=== PATIENT | male | born 1965 | race African-American/Black ===

== ENCOUNTER 2020-05-02 09:23 | Emergency (ER) | payer MEDICARE, MEDICAID ==
[~2020-05-02] VITALS: Ht 175.3 cm; Wt 82.0 kg
[~2020-05-02 09:23] MED LIST: LEVO500T2 PO; NIFEDIPINE; REN400 PO
[2020-05-02 10:17] LABS: BASOPHILS % 1.1 % (0.0-2.0); EOSINOPHILS % 9.5 % (0.0-5.0); HEMATOCRIT. 33.1 % (42.0-52.0); HEMOGLOBIN. 10.6 g/dL (14.0-18.0); LYMPHOCYTES % 13.5 % (20.0-50.0); MEAN CORPUSCULAR VOLUME 93.9 fL (80.0-94.0); MEAN PLATELET VOLUME 7.7 fl (7.4-10.4); MONOCYTES % 10.5 % (2.0-8.0); NEUTROPHILS % 65.4 % (40.0-76.0); PLATELET 286 x1000/uL (130-400); RED BLOOD CELL COUNT 3.52 mill/uL (4.7-6.1); RED CELL DISTRIBUTION WIDTH 14.8 % (11.6-14.6)
[2020-05-02 10:18] LABS: CHLORIDE 100 mEq/L (98-107)
[2020-05-02 11:30] VITALS: BP 135/62
== END 2020-05-02 12:44 | disposition home or self-care (01) ==
LOC: ER 09:23
DX: T82.838A Hemorrhage due to vascular prosthetic devices, implants and grafts, initial encounter (principal); E11.22 Type 2 diabetes mellitus with diabetic chronic kidney disease; N18.6 End stage renal disease; Z99.2 Dependence on renal dialysis; Y84.1 Kidney dialysis as the cause of abnormal reaction of the patient, or of later complication, without mention of misadventure at the time of the procedure; Y92.018 Other place in single-family (private) house as the place of occurrence of the external cause
CPT/HCPCS: 36415; 80053; 85025; 86850; 86900; 93005; 99284

== ENCOUNTER 2021-10-19 09:43 | Day surgery (SDC) | payer MEDICARE, MEDICAID ==
[~2021-10-19] VITALS: Ht 182.9 cm; Wt 112.5 kg
[~2021-10-19 09:43] MED LIST changes: +ASPI-1497 PO; +ATOR40TA70 PO; +CINA30 PO; -LEVO500T2 PO; -NIFEDIPINE
[2021-10-19 10:20] LABS: BASOPHILS % 0.7 % (0.0-2.0); EOSINOPHILS % 10.4 % (0.0-5.0); HEMATOCRIT. 36.8 % (42.0-52.0); HEMOGLOBIN. 11.8 g/dL (14.0-18.0); LYMPHOCYTES % 12.3 % (20.0-50.0); MEAN CORPUSCULAR HEMOGLOBIN 30.1 pg (28.0-32.0); MEAN PLATELET VOLUME 7.5 fl (7.4-10.4); MONOCYTES % 14.1 % (2.0-8.0); NEUTROPHILS % 62.5 % (40.0-76.0); PLATELET 270 x1000/uL (130-400); RED BLOOD CELL COUNT 3.91 mill/uL (4.7-6.1); RED CELL DISTRIBUTION WIDTH 14.6 % (11.6-14.6)
[2021-10-19 10:31] LABS: PARTIAL THROMBOPLASTIN TIME 27.7 sec (23.4-31.0); PROTHROMBIN TIME 11.1 sec (9.6-11.0)
[2021-10-19] MEDS ORDERED: SODIUM CHLORIDE 0.9% 500 ML IV ONE (11:30)
[2021-10-19] MEDS ORDERED: PROPOFOL 200MG/20ML VIAL IV ONE (11:31)
[2021-10-19] MEDS ORDERED: MIDAZOLAM HCL 2 MG/2 ML VIAL ONE (11:32)
[2021-10-19] MEDS ORDERED: BACITRACIN 15GM TUBE TOP ONE (11:33)
[2021-10-19] MEDS ORDERED: POLYMYXIN B SULFATE 500000 UNITS/VIAL ONE (11:33)
[2021-10-19] MEDS ORDERED: THROMBIN (BOVINE) 5000 UNITS/VIAL TOP ONE (11:33)
[2021-10-19] MEDS ORDERED: BUPIVACAINE HCL 0.5% (5MG/ML) 50ML ONE (11:33)
[2021-10-19] MEDS ORDERED: HEPARIN SODIUM 1,000 UNIT/1ML VIAL IV ONE (11:33)
[2021-10-19] MEDS ORDERED: FENTANYL CITRATE/PF 50MCG/ML 2ML VIAL ONE (11:34)
[2021-10-19] MEDS ORDERED: CEFAZOLIN SODIUM 1000MG/VIAL ONE (11:44)
[2021-10-19] MEDS ORDERED: DEXAMETHASONE 4MG/ML 1ML VIAL ONE (11:44)
[2021-10-19] MEDS ORDERED: ONDANSETRON HCL 4MG/2ML INJ ONE (11:44)
[2021-10-19] MEDS ORDERED: EPHEDRINE SULFATE 50MG/ML VIAL ONE (12:02)
[2021-10-19] MEDS ORDERED: SUCCINYLCHOLINE CHLORIDE 200MG/10ML IV ONE (12:24)
[2021-10-19] MEDS ORDERED: HEPARIN 1000 UNITS/ML 10ML ONE (12:47)
[2021-10-19] MEDS ORDERED: FENTANYL CITRATE/PF 50MCG/ML 2ML VIAL IV PRN (13:00)
[2021-10-19] MEDS ORDERED: GLYCOPYRROLATE 0.2 MG/ML 2ML VIAL IV PRN (13:00)
[2021-10-19] MEDS ORDERED: ONDANSETRON HCL 4MG/2ML INJ IV PRN (13:00)
[2021-10-19] MEDS ORDERED: PROTAMINE SULFATE 10MG/ML VIAL 5ML IV ONE (13:03)
[2021-10-19] MEDS ORDERED: KETOROLAC 30MG/ML VIAL ONE (13:08)
== END 2021-10-19 15:20 | disposition home or self-care (01) ==
LOC: OR 09:43
PROVIDERS: ATTEND Surgery Vascular Surgery
DX: I77.0 Arteriovenous fistula, acquired (principal); N18.6 End stage renal disease; T82.898A Other specified complication of vascular prosthetic devices, implants and grafts, initial encounter; E78.00 Pure hypercholesterolemia, unspecified; Z79.899 Other long term (current) drug therapy; Z20.822 Contact with and (suspected) exposure to COVID-19; Z98.890 Other specified postprocedural states; X58.XXXA Exposure to other specified factors, initial encounter; Y93.89 Activity, other specified; Y92.89 Other specified places as the place of occurrence of the external cause; Y99.8 Other external cause status
CPT/HCPCS: 36415; 36832; 80048; 85025; 85610; 85730; 87426; 93005; C1768; C9803; J0330; J0690; J1100; J1644; J1885; J2250; J2405; J2704; J2720; J3010; J3490; J7040

== ENCOUNTER 2021-10-19 22:50 | Emergency (ER) | payer MEDICARE, MEDICAID ==
[~2021-10-19] VITALS: Ht 182.9 cm; Wt 112.0 kg
[2021-10-19 23:07] VITALS: BP 150/76
== END 2021-10-20 03:40 | disposition left against medical advice (07) ==
LOC: ER 22:50
DX: Z53.21 Procedure and treatment not carried out due to patient leaving prior to being seen by health care provider (principal)

== ENCOUNTER 2021-11-07 06:29 | Inpatient (IN) | payer MEDICARE, MEDICAID ==
[~2021-11-07] VITALS: Ht 182.9 cm; Wt 114.8 kg
[2021-11-07 09:46] LABS: BASOPHILS % 0.6 % (0.0-2.0); EOSINOPHILS % 8.1 % (0.0-5.0); HEMATOCRIT. 34.2 % (42.0-52.0); HEMOGLOBIN. 10.7 g/dL (14.0-18.0); LYMPHOCYTES % 12.2 % (20.0-50.0); MEAN CORPUSCULAR HEMOGLOBIN 29.5 pg (28.0-32.0); MEAN CORPUSCULAR VOLUME 93.9 fL (80.0-94.0); MEAN PLATELET VOLUME 8.3 fl (7.4-10.4); MONOCYTES % 13.1 % (2.0-8.0); PLATELET 387 x1000/uL (130-400); RED BLOOD CELL COUNT 3.64 mill/uL (4.7-6.1); RED CELL DISTRIBUTION WIDTH 14.8 % (11.6-14.6)
[2021-11-07 09:54] LABS: CHLORIDE 101 mEq/L (98-107)
[2021-11-07 09:55] LABS: PROTHROMBIN TIME 11.1 sec (9.6-11.0)
[2021-11-07] MEDS ORDERED: INSULIN REGULAR (HUMULIN R) 300UNITS/3ML VIAL IV ONE (11:00)
[2021-11-07] MEDS ORDERED: CALCIUM GLUCONATE 1,000 MG in DEXT 5% WATER 100 ML IV ONE (11:00)
[2021-11-07] MEDS ORDERED: SODIUM BICARBONATE 8.4% 1 MEQ/ML 50ML SYR IV ONE (11:00)
[2021-11-07] MEDS ORDERED: DEXTROSE 50% WATER 50ML SYRINGE IV ONE (11:00)
[2021-11-07] MEDS ORDERED: CALCIUM GLUCONATE 1GM PREMIX 100 ML IV NR (11:15)
[2021-11-07] MEDS ORDERED: LIDOCAINE HCL 1% 10 MG/ML 10ML VIAL ONE (13:27)
[2021-11-07 16:30] VITALS: BP 152/68
[2021-11-07] MEDS ORDERED: ENOXAPARIN 40MG/0.4ML SYR SUBCUT SCH (16:45)
[2021-11-07 16:51] VITALS: BP 152/68
[2021-11-07 17:01] LABS: HEPATITIS B SURFACE ANTIGEN NEGATIVE
[2021-11-07] MEDS ORDERED: SEVELAMER HCL 400 MG PO SCH (17:50)
[2021-11-07] MEDS ORDERED: ENOXAPARIN 30MG/0.3ML SYR SUBCUT SCH (18:00)
[2021-11-07] MEDS: ASPIRIN 81MG EC TABLET PO SCH (18:15)
[2021-11-07] MEDS: SEVELAMER CARBONATE 800 MG TABLET PO SCH (18:16)
[2021-11-07] MEDS: CINACALCET HCL 60MG TABLET PO SCH (18:16)
[2021-11-07 20:00] VITALS: BP 130/70
[2021-11-07] MEDS: ATORVASTATIN CALCIUM 40MG TABLET PO SCH (21:42)
[2021-11-08] VITALS: BP 130/68
[2021-11-08 04:00] VITALS: BP 120/43
[2021-11-08] MEDS ORDERED: DEXTROSE 50% WATER 50ML SYRINGE IV PRN (04:15)
[2021-11-08] MEDS: BLOOD SUGAR DIAGNOSTIC STRIP TEST SCH ×4 (06:40→20:37)
[2021-11-08 06:43] LABS: BASOPHILS % 0.6 % (0.0-2.0); EOSINOPHILS % 9.4 % (0.0-5.0); HEMATOCRIT. 31.2 % (42.0-52.0); HEMOGLOBIN. 10.1 g/dL (14.0-18.0); LYMPHOCYTES % 11.9 % (20.0-50.0); MEAN CORPUSCULAR VOLUME 92.9 fL (80.0-94.0); MEAN PLATELET VOLUME 8.5 fl (7.4-10.4); NEUTROPHILS % 64.1 % (40.0-76.0); PLATELET 364 x1000/uL (130-400); RED BLOOD CELL COUNT 3.36 mill/uL (4.7-6.1); RED CELL DISTRIBUTION WIDTH 14.7 % (11.6-14.6)
[2021-11-08 06:54] LABS: CHLORIDE 101 mEq/L (98-107)
[2021-11-08] MEDS: INSULIN LISPRO 100 UNITS/ML SUBCUT SCH ×4 (07:50→20:37)
[2021-11-08 08:00] VITALS: BP 106/45
[2021-11-08] MEDS: SEVELAMER CARBONATE 800 MG TABLET PO SCH ×3 (09:21→18:01)
[2021-11-08] MEDS: CINACALCET HCL 60MG TABLET PO SCH (09:21)
[2021-11-08] MEDS: ASPIRIN 81MG EC TABLET PO SCH (09:21)
[2021-11-08 12:00] VITALS: BP 129/71
[2021-11-08 16:00] VITALS: BP 132/75
[2021-11-08] MEDS: ENOXAPARIN 40MG/0.4ML SYR SUBCUT SCH (18:00)
[2021-11-08 20:00] VITALS: BP 150/57
[2021-11-08] MEDS ORDERED: PREDNISONE 20MG TABLET PO SCH (20:00)
[2021-11-08] MEDS: ATORVASTATIN CALCIUM 40MG TABLET PO SCH (20:36)
[2021-11-09] VITALS: BP 121/74
[2021-11-09] MEDS ORDERED: PREDNISONE 20MG TABLET PO SCH ×3 (02:00→20:00)
[2021-11-09 04:00] VITALS: BP 136/49
[2021-11-09 07:15] LABS: HEMATOCRIT. 33.7 % (42.0-52.0); HEMOGLOBIN. 10.9 g/dL (14.0-18.0); MEAN CORPUSCULAR VOLUME 92.7 fL (80.0-94.0); MEAN PLATELET VOLUME 8.4 fl (7.4-10.4); PLATELET 364 x1000/uL (130-400); RED BLOOD CELL COUNT 3.64 mill/uL (4.7-6.1); RED CELL DISTRIBUTION WIDTH 14.9 % (11.6-14.6)
[2021-11-09 07:22] LABS: CHLORIDE 99 mEq/L (98-107)
[2021-11-09] MEDS: INSULIN LISPRO 100 UNITS/ML SUBCUT SCH ×4 (07:50→21:01)
[2021-11-09] MEDS: BLOOD SUGAR DIAGNOSTIC STRIP TEST SCH ×4 (07:57→21:02)
[2021-11-09 08:00] VITALS: BP 185/65
[2021-11-09] MEDS ORDERED: DIPHENHYDRAMINE 50MG CAPSULE PO NR ×2 (08:00→14:45)
[2021-11-09] MEDS: ASPIRIN 81MG EC TABLET PO SCH (09:00)
[2021-11-09] MEDS: SEVELAMER CARBONATE 800 MG TABLET PO SCH ×3 (10:31→17:50)
[2021-11-09] MEDS: CINACALCET HCL 60MG TABLET PO SCH (10:39)
[2021-11-09 11:53] VITALS: BP 132/64
[2021-11-09 16:00] VITALS: BP 115/52
[2021-11-09] MEDS: ENOXAPARIN 40MG/0.4ML SYR SUBCUT SCH (18:00)
[2021-11-09 18:09] LABS: PLATELET ESTIMATE NORMAL
[2021-11-09 20:00] VITALS: BP 167/62
[2021-11-09] MEDS: ATORVASTATIN CALCIUM 40MG TABLET PO SCH (21:00)
[2021-11-10] VITALS (28 sets, daily range): BP systolic 141–193; BP diastolic 50–88
[2021-11-10] MEDS ORDERED: PREDNISONE 20MG TABLET PO SCH ×2 (02:00→08:00)
[2021-11-10 06:33] LABS: HEMATOCRIT. 34.5 % (42.0-52.0); MEAN CORPUSCULAR HEMOGLOBIN 29.5 pg (28.0-32.0); MEAN CORPUSCULAR VOLUME 92.5 fL (80.0-94.0); MEAN PLATELET VOLUME 8.4 fl (7.4-10.4); PLATELET 343 x1000/uL (130-400); RED BLOOD CELL COUNT 3.73 mill/uL (4.7-6.1); RED CELL DISTRIBUTION WIDTH 15.3 % (11.6-14.6)
[2021-11-10] MEDS ORDERED: ALTEPLASE 2MG/VIAL ITC SCH (07:00)
[2021-11-10] MEDS: BLOOD SUGAR DIAGNOSTIC STRIP TEST SCH ×2 (07:27→12:46)
[2021-11-10] MEDS ORDERED: CEFAZOLIN 1000MG PREMIX 50 ML IV NR (07:30)
[2021-11-10 07:46] LABS: CHLORIDE 97 mEq/L (98-107)
[2021-11-10] MEDS: SEVELAMER CARBONATE 800 MG TABLET PO SCH ×2 (07:50→12:47)
[2021-11-10] MEDS: INSULIN LISPRO 100 UNITS/ML SUBCUT SCH ×2 (07:50→12:47)
[2021-11-10] MEDS ORDERED: DIPHENHYDRAMINE 50MG CAPSULE PO NR (08:00)
[2021-11-10] MEDS ORDERED: LIDOCAINE HCL 1% 10 MG/ML 10ML VIAL ONE ×2 (09:41→10:47)
[2021-11-10] MEDS ORDERED: HEPARIN 1000 UNITS/ML 10ML ONE (09:41)
[2021-11-10] MEDS ORDERED: IOHEXOL-300 100 ML BOTTLE ONE (09:42)
[2021-11-10] MEDS ORDERED: FENTANYL CITRATE/PF 50MCG/ML 2ML VIAL ONE (09:43)
[2021-11-10] MEDS ORDERED: MIDAZOLAM HCL 2 MG/2 ML VIAL ONE (10:36)
[2021-11-10] MEDS ORDERED: FENTANYL CITRATE/PF 50MCG/ML 2ML VIAL IV ONE ×2 (11:00→11:15)
[2021-11-10] MEDS ORDERED: MIDAZOLAM HCL 5 MG/5 ML VIAL IV ONE (11:00)
[2021-11-10] MEDS: CINACALCET HCL 60MG TABLET PO SCH (12:46)
[2021-11-10] MEDS: ASPIRIN 81MG EC TABLET PO SCH (12:47)
[2021-11-10 23:16] LABS: PLATELET ESTIMATE NORMAL
== END 2021-11-10 18:52 | disposition home or self-care (01) | DRG 314 ==
LOC: ER 06:29 → EDBEDREQ 13:19 → EDBEDREQTM 13:19 → ENRESERV 14:47 → 6WST 16:09
PROVIDERS: ADMIT Hospitalist; ATTEND Hospitalist
PROC: 02HV33Z Insertion of Infusion Device into Superior Vena Cava, Percutaneous Approach (ICD-10-PCS; 2021-11-07)
PROC: 5A1D70Z Performance of Urinary Filtration, Intermittent, Less than 6 Hours Per Day (ICD-10-PCS; 2021-11-07)
PROC: 5A1D70Z Performance of Urinary Filtration, Intermittent, Less than 6 Hours Per Day (ICD-10-PCS; 2021-11-09)
PROC: B51W1ZZ Fluoroscopy of Dialysis Shunt/Fistula using Low Osmolar Contrast (ICD-10-PCS; principal; 2021-11-10)
PROC: 02PYX3Z Removal of Infusion Device from Great Vessel, External Approach (ICD-10-PCS; 2021-11-10)
PROC: 02HV33Z Insertion of Infusion Device into Superior Vena Cava, Percutaneous Approach (ICD-10-PCS; 2021-11-10)
PROC: 0JH63XZ Insertion of Tunneled Vascular Access Device into Chest Subcutaneous Tissue and Fascia, Percutaneous Approach (ICD-10-PCS; 2021-11-10)
PROC: B518ZZA Fluoroscopy of Superior Vena Cava, Guidance (ICD-10-PCS; 2021-11-10)
PROC: 5A1D70Z Performance of Urinary Filtration, Intermittent, Less than 6 Hours Per Day (ICD-10-PCS; 2021-11-10)
DX: T82.818A Embolism due to vascular prosthetic devices, implants and grafts, initial encounter (principal); I50.33 Acute on chronic diastolic (congestive) heart failure; N18.6 End stage renal disease; I13.2 Hypertensive heart and chronic kidney disease with heart failure and with stage 5 chronic kidney disease, or end stage renal disease; E87.1 Hypo-osmolality and hyponatremia; E87.5 Hyperkalemia; E11.319 Type 2 diabetes mellitus with unspecified diabetic retinopathy without macular edema; D63.1 Anemia in chronic kidney disease; Y71.2 Prosthetic and other implants, materials and accessory cardiovascular devices associated with adverse incidents; E21.1 Secondary hyperparathyroidism, not elsewhere classified; E78.5 Hyperlipidemia, unspecified; E11.22 Type 2 diabetes mellitus with diabetic chronic kidney disease; Z20.822 Contact with and (suspected) exposure to COVID-19; Y83.2 Surgical operation with anastomosis, bypass or graft as the cause of abnormal reaction of the patient, or of later complication, without mention of misadventure at the time of the procedure; Z99.2 Dependence on renal dialysis; Z79.82 Long term (current) use of aspirin; Z79.899 Other long term (current) drug therapy; Y92.89 Other specified places as the place of occurrence of the external cause
CPT/HCPCS: 36415; 36556; 36558; 36589; 36901; 71045; 76937; 77001; 80048; 80053; 82962; 85025; 86705; 86709; 86803; 87340; 87426; 93005; 99152; 99153; 99291; C1725; C1750; C1752; C1769; C1887; J0610; J0690; J1644; J1650; J1815; J2250; J2997; J3010; J3490; J7060; J7512; Q0163; Q9967; G0500